=== PATIENT | female | born 2000 | race Caucasian/White ===

== ENCOUNTER 2023-11-25 22:20 | Emergency (ER) | payer BC, MEDICAID, SELFPAY ==
[2023-11-25 22:26] VITALS: BP 140/88; PULSE 71; RESP 16; TEMP 36.4; O2SAT 99; BMI 34.4
[2023-11-25 22:43] LABS: Basophils % 0.3 %; Eosinophils # 0.4 10^3/uL (0.0-0.8); Eosinophils % 2.6 %; Hematocrit 38.7 % (36-47); Lymphocytes % 29.1 %; Mean Corpuscular HGB Conc 31.3 g/dL (30-55); Mean Corpuscular Hemoglobin 25.1 pg (27-33); Mean Corpuscular Volume 80.1 fl (85-98); Mean Platelet Volume 9.4 fL (7.4-10.4); Monocytes # 0.8 10^3/uL (0.2-0.9); Monocytes % 6.2 %; Neutrophils % 61.5 %; Nucleated Red Blood Cells % 0 %; Platelet Count 298 10^3/cmm (157-399); Red Blood Count 4.83 10^6/uL (3.85-5.65); Red Cell Distribution Width 14.7 % (12.1-15.1); White Blood Count 13.63 10^3/uL (3.29-11.43)
[2023-11-25 23:05] LABS: HCG Quantitative 43.89 mIU/mL
[2023-11-25 23:16] LABS: Alanine Aminotransferase 18 U/L (0-33); Albumin Level 4.2 g/dL (3.5-5.2); Alkaline Phosphatase 77 U/L (35-105); Anion Gap 15.8 (5-19); Aspartate Amino Transferase 19 U/L (0-32); Blood Urea Nitrogen 11 mg/dL (6-20); Calcium 8.9 mg/dL (8.5-10.5); Carbon Dioxide 24 mmol/L (22-29); Chloride 105 mmol/L (98-107); Creatinine Clr Calc Pharmacy 145.1995; Globulin 3.3 g/dL (1.3-4.6); Glomerular Filtration Rate 121.8 mL/min (90-130); Glucose 97 mg/dL (65-115); Osmolality Calculated 291 mOsm/kg (285-295); Potassium 3.8 mmol/L (3.5-5.1); Sodium 141 mmol/L (136-145); Total Bilirubin 0.2 mg/dL (0.15-1.2); Total Protein 7.5 g/dL (6.6-8.7)
--- NOTE | 2023-11-25 23:32 | W.ED.PREGNAN ---
HPI - General: Chief complaint: Vaginal Bleeding Stated complaint: 4wks preg, Cramping, vaginal bleeding Time Seen by Provider: 11/25/23 22:22 History of Present Illness: 23-year-old female who presents to the emergency room with cramping and vaginal bleeding. She thinks she might be 4 weeks . She had a very faint positive test earlier. No localizing/adnexal pain. No nausea or vomiting. No dysuria. No fevers. Related Data Previous Rx's Medication Instructions Recorded doxycycline hyclate 100 mg tablet 100 mg PO BID 7 days #14 tabs 07/21/23 Allergies Allergy/AdvReac Type Severity Reaction Status Date / Time No Known Allergies Allergy Unverified 07/21/23 15:52 Review of Systems Narrative: Constitutional symptoms: Negative except as documented in HPI. Skin symptoms: Negative except as documented in HPI. Eye symptoms: Negative except as documented in HPI. ENMT symptoms: Negative except as documented in HPI. Respiratory symptoms: Negative except as documented in HPI. Cardiovascular symptoms: Negative except as documented in HPI. Gastrointestinal symptoms: Negative except as documented in HPI. Genitourinary symptoms: Negative except as documented in HPI. Musculoskeletal symptoms: Negative except as documented in HPI. Neurologic symptoms: Negative except as documented in HPI. Psychiatric symptoms: Negative except as documented in HPI. Endocrine symptoms: Negative except as documented in HPI. Physical Exam Narrative: EXAM NARRATIVE: General: Alert, no acute distress. Skin: Warm, dry. Head: Normocephalic, atraumatic. Neck: Supple, trachea midline. Eye: Extraocular movements are intact. Ears, nose, mouth and throat: mucosa moist. Cardiovascular: Regular, Normal peripheral perfusion. Respiratory: Lungs are clear to auscultation, respirations are non-labored, breath sounds are equal, Symmetrical chest wall expansion. Gastrointestinal: Soft, Nontender, Non distended Musculoskeletal: Normal ROM, no deformity. Neurological: Alert and oriented, No focal neurological deficit observed. Psychiatric: Cooperative, appropriate mood & affect. Course Vital Signs: Vital signs: Vital Signs Temperature 97.6 F 11/25/23 22:26 Pulse Rate 68 11/25/23 23:43 Respiratory Rate 16 11/25/23 22:26 Blood Pressure 127/78 11/25/23 23:43 Pulse Oximetry 100 11/25/23 23:43 Oxygen Delivery Me thod Room Air 11/25/23 22:26 MDM - OB/Uterine Contractions Medical Decision Making Medical decision making: Differential diagnosis including but not limited to and based on the above HPI, review of systems and physical exam: for patient in early with vaginal bleeding and abdominal pain: Spontaneous , threatened . Urinary tract infection. ectopic . Orders placed to evaluate differential diagnosis based on the above differential, HPI and physical exam Lab Review: Laboratory results were reviewed and interpreted by myself the emergency room physician. Mild leukocytosis with a white count of 13.6. No anemia. No renal failure. hCG quant is only 48. This would suggest this is a miscarriage, but without serial levels difficult to say. Could still be a very very early . Urine shows no signs of infection. Patient's blood type is A positive. She would not require RhoGAM. Transvaginal ultrasound: No evidence of intrauterine . No evidence of ectopic . There is a cyst on the ovary. Good blood flow to both ovaries. This was reviewed and interpreted by myself the emergency room physician. I also reviewed the radiology report. I reviewed the patient's medical record. Reexamination: Patient remained stable. No increased work of breathing. No altered mental status. No focal motor deficits. Assessment and plan: Probable miscarriage - Discharged home - Discussed plan with patient. Answered any questions. - Evaluation and treatment of this problem were appropriate in the emergency setting. Lab Data 11/25/23 22:31 11/25/23 22: Laboratory Results WBC 13.63 10^3/uL (3.29-11.43) H 11/25/23 22: RBC 4.83 10^6/uL (3.85-5.65) 11/25/23 22: Hgb 12.10 g/dL (11.27-16.99) 11/25/23 22: Hct 38.7 % (36-47) 11/25/23 22: MCV 80.1 fl (85-98) L 11/25/23 22: MCH 25.1 pg (27-33) L 11/25/23 22: MCHC 31.3 g/dL (30-55) 11/25/23 22: RDW 14.7 % (12.1-15.1) 11/25/23 22: Plt Count 298 10^3/cmm (157-399) 11/25/23 22:31 MPV 9.4 fL (7.4-10.4) 11/25/23 22:31 Neut % (Auto) 61.5 % 11/25/23 22: Lymph % (Auto) 29.1 % 11/25/23 22: Stearns % (Auto) 6.2 % 11/25/23 22: Eos % (Auto) 2.6 % 11/25/23 22: Baso % (Auto) 0.3 % 11/25/23 22: Neut # (Auto) 8.40 10^3/uL (1.8-7.7) H 11/25/23 22: Lymph # (Auto) 4.0 10^3/uL (0.8-4.8) 11/25/23 22: Stearns # (Auto) 0.8 10^3/uL (0.2-0.9) 11/25/23 22: Eos # (Auto) 0.4 10^3/uL (0.0-0.8) 11/25/23 22: Baso # (Auto) 0.0 10^3/uL (0.0-0.1) 11/25/23 22: Nucleated RBC % (auto) 0 % 11/25/23: Nucleated RBCs # 0.0 /100WBC 11/25/23 22: Sodium 141 mmol/L (136-145) 11/25/23 22: Potassium 3.8 mmol/L (3.5-5.1) 11/25/23 22: Chloride 105 mmol/L (98-107) 11/25/23 22: Carbon Dioxide 24 mmol/L (22-29) 11/25/23 22: Anion Gap 15.8 (5-19) 11/25/23 22:31 BUN 11 mg/dL (6-20) 11/25/23 22: Creatinine 0.6 mg/dL (0.5-0.9) 11/25/23 22: GFR Calculation 121.8 mL/min (90-130) 11/25/23 22:31 Glucose 97 mg/dL (65-115) 11/25/23 22: Calculated Osmolality 291 mOsm/kg (285-295) 11/25/23 22:31 Calcium 8.9 mg/dL (8.5-10.5) 11/25/23 22:31 Total Bilirubin 0.2 mg/dL (0.15-1.2) 11/25/23 22:31 AST 19 U/L (0-32) 11/25/23 22:31 ALT 18 U/L (0-33) 11/25/23 22:31 Alkaline Phosphatase 77 U/L (35-105) 11/25/23 22:31 Total Protein 7.5 g/dL (6.6-8.7) 11/25/23 22:31 Albumin 4.2 g/dL (3.5-5.2) 11/25/23 22: Globulin 3.3 g/dL (1.3-4.6) 11/25/23 22:31 Ser , Semi-Qnt 43.89 mIU/mL 11/25/23 22:31 Urine Color Yellow (Yellow) 11/25/23 23:50 Urine Appearance Clear (CLEAR) 11/25/23 23:50 Urine pH 5.5 (5-7) 11/25/23 23:50 Ur Specific Edgar 1.012 (1.005-1.030) 11/25/23 23:50 Urine Protein Negative (Negative) 11/25/23 23:50 Urine Glucose (UA) Negative (Normal) 11/25/23 23:50 Urine Ketones Negative (Negative) 11/25/23 23:50 Urine Blood 2+ (Negative) A 11/25/23 23:50 Urine Nitrate Negative (Negative) 11/25/23 23:50 Urine Bilirubin Negative (Negative) 11/25/23 23:50 Urine Urobilinogen 0.2 mg/dL (Negative) 11/25/23 23:50 Ur Leukocyte Esterase Negative (Negative) 11/25/23 23:50 Urine RBC 6-10 /hpf (0-2) 11/25/23 23:50 Urine WBC 0-5 /hpf (0-5) 11/25/23 23:50 Ur Squamous Epith Cells 0-5 /hpf (0-5) 11/25/23 23:50 Amorphous Sediment Not Reportable 11/25/23 23:50 Urine Bacteria None seen /hpf (NONE) 11/25/23 23:50 Hyaline Casts 0-4 /lpf H 11/25/23 23:50 Blood Type A Positive 11/25/23 22:31 Rho(D) Type Rh positive 11/25/23 22:31 All radiology interpretation(s) finalized by discharge Discharge Plan Discharge Patient Disposition: Home Clinical Impression: Threatened miscarriage Condition: Stable Prescriptions: No Action doxycycline hyclate 100 mg tablet 100 mg PO BID 7 Days Qty: 14 0RF Discharge Orders: Discharge ED (Routine); Ordered 11/26/23 Ordered By: Rosio Patiño Referrals: Onur Gonzalez FNP [Primary Care Provider] - Discharge Diet: Usual diet Discharge Activity: Increase activity as tolerated Patient Instructions: Miscarriage (ED), Threatened Miscarriage (ED) Activity Restrictions/Additional Instructions: Need to follow-up with your manager urology or your primary provider early next week for repeat hCG test. Thank you for choosing [facility] for your healthcare needs today. Please realize this is an emergency room and that we are providing you with a medical screening exam and this may not be complete and all inclusive of all the testing and or work up that you may need to determine your ailment or severity of your illness. You have been screened and evaluated and felt safe for discharge. Health conditions do change or evolve sometimes and as such it is important that you follow up with your Primary Doctor to be re checked, 3-5 days is a general good time frame for follow up. You are always welcome to return to the ED for re assessment if your symptoms are worsening or you have new concerns Coding Level of Care Code ED Steward/Stewardess Second for Mercedes Stratton
[2023-11-25 23:43] VITALS: BP 127/78; PULSE 68; O2SAT 100
[2023-11-26] LABS: Bilirubin Urine Negative (Negative); Blood Urine 2+ (Negative); Glucose Urine UA Negative (Normal); Ketones Urine Negative (Negative); Leukocyte Esterase Urine Negative (Negative); Nitrate Urine Negative (Negative); Protein Urine Negative (Negative); Specific Gravity, Urine 1.012 (1.005-1.030); Urine Appearance Clear (CLEAR); Urine Color Yellow (Yellow); Urobilinogen Urine 0.2 mg/dL (Negative); pH Urine 5.5 (5-7)
--- NOTE | 2023-11-26 00:01 | USR_ITS ---
PROCEDURE INFORMATION: Exam: US First Trimester, Transabdominal and US , Transvaginal Exam date and time: 11/26/2023 1:06 AM Age: 23 years old Clinical indication: complicated by abdominal or pelvic pain; Lower; First trimester (<14 weeks 0 days); Gestational age or lmp: 4w5d; Additional info: Lower quadrant, pain, rule out ectopic TECHNIQUE: Imaging protocol: Real-time transabdominal obstetrical ultrasound of the maternal pelvis and a first trimester , less than 14 weeks 0 days, with image documentation. Transvaginal imaging was used for better evaluation of the fetus, adnexa, and/or cervix. COMPARISON: No relevant prior studies available. FINDINGS: GESTATION: The uterus measures 9.1 x 4.7 x 4.7 cm in size. The endometrial stripe measures 1 cm. No endometrial fluid collections are identified. No intrauterine is noted. There is a small amount of fluid within the cervix. There is a small nabothian cyst. The right ovary measures 2.2 x 2.2 x 2.9 cm in size. There is a small cyst possibly representing a corpus luteum cyst measuring 7 mm in size. There is normal duplex and color Doppler blood flow to the right ovary. The left ovary measures 2 x 1.4 x 1.3 cm in size. There is normal duplex and color Doppler blood flow to the left ovary. No adnexal masses are appreciated. No free fluid is seen within the pelvis. US/US OB <=14 wk fetus w transvag IMPRESSION: 1. No intra or extra uterine identified. In the setting of a positive test, findings could represent an early IUP, spontaneous A/B or ectopic . Recommend clinical correlation and further appropriate workup/follow-up.
[2023-11-26 00:05] LABS: Bacteria Urine None Seen /hpf; Hyaline Casts Urine 0-4 /lpf; Squamous Epithelial Cell Urine 0-5 /hpf (0-5); WBC Urine 0-5 /hpf (0-5)
[2023-11-26] MEDS: acetaminophen 500 mg Tablet 1000 MG PO (00:38)
[2023-11-26 01:38] VITALS: BP 121/63; PULSE 67; O2SAT 93
== END 2023-11-26 01:41 | disposition home or self-care (01) ==
PROVIDERS: Emergency Provider Emergency Medicine; Family Provider Nurse Practitioner Family; PCP Nurse Practitioner Family
DX: O20.0 Threatened abortion (principal); Z3A.01 Less than 8 weeks gestation of pregnancy
CPT/HCPCS: 36415; 76801; 76817; 80053; 81001; 84702; 85025; 86900; 99284